=== PATIENT | male | born 1980 | race Caucasian/White ===

== ENCOUNTER 2020-04-26 13:11 | Outpatient (CLI) | payer SELFPAY ==
[2020-04-27 10:52] LABS: HIV AG/AB 4TH GEN NON-REACTIVE (NON-REACTIVE)
[2020-04-30 13:21] LABS: HSV 1 IGG TYPE SPECIFIC AB 53.5 index; HSV 2 IGG TYPE SPECIFIC AB 1.71 index
== END 2020-04-26 23:59 | disposition home or self-care (01) ==
LOC: LAB.N 13:11
PROVIDERS: ATTEND Family Medicine
DX: Z20.2 Contact with and (suspected) exposure to infections with a predominantly sexual mode of transmission (principal)
CPT/HCPCS: 36415; 81599; 86592; 86695; 86696; 87389; 87491; 87591; 87661